=== PATIENT | female | born 1955 | race Caucasian/White ===

== ENCOUNTER 2024-08-24 03:24 | Emergency (ER) | payer OTHER ==
[~2024-08-24] VITALS: Ht 160 cm; Wt 90.9 kg
[2024-08-24 04:34] LABS: Basophils # (auto) 0 10 ^3/uL (0-0.2); Basophils % (auto) 0.3 % (0.0-2.0); Eosinophils # (auto) 0 10 ^3/uL (0-0.8); Eosinophils % (auto) 0.1 % (0.0-7.0); Hematocrit 39.4 % (36.0-46.0); Hemoglobin 13.3 g/dL (12.2-16.2); Lymphocytes # (auto) 0.7 10 ^3/uL (0.4-5.4); Lymphocytes % (auto) 5.5 % (10.0-50.0); Mean Corpuscular Hemoglobin 27.6 pg (28.0-32.0); Mean Corpuscular Hgb Conc. 33.7 g/dL (32.0-36.0); Mean Corpuscular Volume 82.1 fL (80.0-100.0); Monocytes # (auto) 0.3 10 ^3/uL (0-1.3); Monocytes % (auto) 2.5 % (0.0-12.0); Neutrophils # (auto) 12.2 10 ^3/uL (1.6-8.6); Neutrophils % (auto) 91.6 % (37.0-80.0); Platelet Count (auto) 446 10^3/uL (140-450); Red Cell Distribution Width 15.6 % (11.8-14.3); White Blood Cell 13.3 10^3/uL (4.4-10.8)
[2024-08-24 04:57] LABS: COVID19 ANTIGEN SOFIA FIA NEGATIVE (NEGATIVE); Rapid Influenza A Negative (Negative); Rapid Influenza B Negative (Negative)
[2024-08-24 04:59] LABS: Albumin 4.7 g/dL (3.2-4.8); Anion Gap 14 (5-15); BUN/Creatinine Ratio 12.2 (10.0-20.0); Blood Urea Nitrogen 15 mg/dL (9-23); Calcium 10.3 mg/dL (8.7-10.4); Carbon Dioxide 26 mmol/L (20-31)
[2024-08-24 05:09] LABS: Alanine Aminotransferase 55 U/L (7-40); Alkaline Phosphatase 131 U/L (46-116); Aspartate Aminotransferase 62 U/L (13-40); Chloride 94 mmol/L (98-107); Glucose 447 mg/dL (74-106); Sodium 134 mmol/L (136-145); Total Protein 8.6 g/dL (5.7-8.2)
[2024-08-24] MEDS: SODIUM CHLORIDE 0.9% 1,000 ML IV ONE ×2 (06:29→08:04)
[2024-08-24] MEDS: ONDANSETRON HCL 4 MG/2 ML VIAL IV ONE (06:30)
[2024-08-24] MEDS: ACETAMINOPHEN 325 MG TAB PO ONE (06:30)
[2024-08-24 07:15] VITALS: RESP 17
[2024-08-24] MEDS: InsuLIN REG 1unit/0.01ml Soln (100units/ml) IV ONE (08:11)
--- NOTE | 2024-08-24 09:07 | ED.PDOC ---
History of Present Illness HPI Comments 68Y F with PMHx DM and HTN presents to ED for chief complaint abd pain with n/v/d x1 day. Additional symptom includes intermittent dizziness for 3 weeks. Chief Complaint: Nausea/Vomiting Time Seen by MD: 08:30 Reviewed Notes: Medications, Allergies Allergies: Coded Allergies: Penicillins (Verified Allergy, Unknown, 08/24/24) Home Meds Active Scripts Nitrofurantoin Monohydrate Mac (Macrobid) 100 Mg Cap, 100 MG PO BID for 7 Days, #14 CAP Prov:JOS KHAN MD 08/24/24 Information Source: Patient Mode of Arrival: Ambulatory Severity: Mild Timing: Days Duration: Since onset Past Medical History PAST MEDICAL HISTORY: DM, HTN Surgical History: Denies all surgeries DRYWALL TAPER History: No Pertinent DRYWALL TAPER History Family History Family History: Unknown Social History Smoker: Non-Smoker Alcohol: Denies ETOH Use Drugs: Denies Drug Use Lives In: Home Constitutional: denies: chills, diaphoresis, fatigue, fever, malaise, sweats, weakness, others EENTM: denies: blurred vision, double vision, ear bleeding, ear discharge, ear drainage, ear pain, ear ringing, eye pain, eye redness, hearing loss, mouth pain, mouth swelling, nasal discharge, nose bleeding, nose congestion, nose pain, photophobia, tearing, throat pain, throat swelling, voice changes, others Respiratory: denies: cough, hemoptysis, orthopnea, SOB at rest, shortness of breath, SOB with excertion, stridor, wheezing, others Cardiovascular: denies: chest pain, dizzy spells, diaphoresis, Dyspnea on exertion, edema, irregular heart beat, left arm pain, lightheadedness, palpitations, PND, syncope, others Gastrointestinal: reports: abdominal pain, diarrhea, nausea, vomiting; denies: abdomen distended, blood streaked bowels, constipated, dysphagia, difficulty s wallowing, hematemesis, melena, poor appetite, poor fluid intake, rectal bleeding, rectal pain, others Genitourinary: denies: abnormal vagina bleeding, burning, dyspareunia, dysuria, flank pain, frequency, hematuria, incontinence, pain, , vagina discharge, urgency, others Neurological: reports: dizziness; denies: fainting, headache, left sided numbness, left sided weakness, numbness, paresthesia, pre-existing deficit, right sided numbness, right sided weakness, seizure, speech problems, tingling, tremors, weakness, others Musculoskeletal: denies: back pain, gout, joint pain, joint swelling, muscle pain, muscle stiffness, neck pain, others Integumetry: denies: bruises, change in color, change in hair/nails, dryness, laceration, lesions, lumps, rash, wounds, others Allergic/Immunocompromised: denies: Difficulty Healing, Frequent Infections, Hives, Itching, others Hematologic/Lymphatic: denies: anemia, blood clots, easy bleeding, easy bruising, swollen glands, others Endocrine: denies: excessive hunger, excessive sweating, excessive thirst, excessive urination, flushing, intolerance to cold, intolerance to heat, unexplained weight gain, unexplained weight loss, others Psychiatric: denies: anxiety, bipolar disorder, depression, hopeless, panic disorder, schizophrenia, sleepless, suicidal, others All Other Systems: Reviewed and Negative Physical Exam General Appearance: Moderate Distress, Normal HEENT: Normal ENT Inspection, Pharynx Normal, TMs Normal Neck: Full Range of Motion, Non-Tender, Normal, Normal Inspection Respiratory: Chest Non-Tender, Lungs Clear, No Accessory Muscle Use, No Respiratory Distress, Normal Breath Sounds Cardiovascular: No Edema, No JVD, No Murmur, No Gallop, Normal Peripheral Pulses, Regular Rate/Rhythm Breast Exam: Deferred Gastrointestinal: No Organomegaly, Non Tender, No Pulsatile Mass, Normal Bowel Sounds, Soft Genitalia: Deferred Pelvic: Deferred Rectal: Deferred Extremities: No calf tenderness, Normal capillary refill, Normal inspection, Normal range of motion, Non-tender, No pedal edema Musculoskeletal : Apperance: Normal Neurologic: Alert, agriculture consultant II-XII nml as Tested, No Motor Deficits, Normal Affect, Normal Mood, No Sensory Deficits Cerebellar Function: Normal Reflexes: Normal Skin: Dry, Normal Color, Warm Peripheral Pulses: 3+ Radial (R), 3+ Radial (L) Lymphatic: No Adenopathy Was a procedure done? Was a procedure done?: No Differential Dx Considerations may include: Urinary tract infection Electrolyte imbalance X-Ray, Labs, Meds, VS Vital Signs Date Time Temp Pulse Resp B/P (MAP) Pulse Ox O2 Delivery O2 Flow Rate FiO2 08/24/24 09:55 97.8 77 18 167/69 (101) 96 97.8 08/24/24 08:12 98.7 75 16 151/77 (101) 96 98.7 08/24/24 07:15 17 Room Air* 0 21 08/24/24 06:22 97.8 64 18 162/62 (95) 96 97.8 08/24/24 03:40 97.7 111 18 111/93 (99) 95 Lab Test 08/24/24 09:09 08/24/24 09:00 08/24/24 08:08 08/24/24 07:34 Range/Units POC Glucose 296 H 408 *H 432 *H 70-106 mg/dl Urine Color Pending Urine Clarity Pending Urine pH Pending Urine Specific [place] Pending Urine Protein Pending Urine Ketones Pending Urine Blood Pending Urine Nitrite Pending Urine Bilirubin Pending Urine Urobilinogen Pending Urine Leukocyte Esterase Pending Urine RBC Pending Urine WBC Pending Urine Squamous Epithelial Cells Pending Urine Bacteria Pending Urine Glucose Pending Test 08/24/24 07:33 08/24/24 05:32 08/24/24 04:25 08/24/24 04:10 Range/Units POC Glucose 414 *H 70-106 mg/dl Troponin I High Sensitivity 4 3 L </=34 ng/L White Blood Count 13.3 H 4.4-10.8 10^3/uL Red Blood Count 4.80 4.0-5.20 10^6/uL Hemoglobin 13.3 12.2-16.2 g/dL Hematocrit 39.4 36.0-46.0 % Mean Corpuscular Volume 82.1 80.0-100.0 fL Mean Corpuscular Hemoglobin 27.6 L 28.0-32.0 pg Mean Corpuscular Hemoglobin Concent 33.7 32.0-36.0 g/dL Red Cell Distribution Width 15.6 H 11.8-14.3 % Platelet Count 446 140-450 10^3/uL Mean Platelet Volume 8.1 6.9-10.8 fL Neutrophils (%) (Auto) 91.6 H 37.0-80.0 % Lymphocytes (%) (Auto) 5.5 L 10.0-50.0 % Monocytes (%) (Auto) 2.5 0.0-12.0 % Eosinophils (%) (Auto) 0.1 0.0-7.0 % Basophils (%) (Auto) 0.3 0.0-2.0 % Neutrophils # (Auto) 12.2 H 1.6-8.6 10 ^3/uL Lymphocytes # (Auto) 0.7 0.4-5.4 10 ^3/uL Monocytes # (Auto) 0.3 0-1.3 10 ^3/uL Eosinophils # (Auto) 0 0-0.8 10 ^3/uL Basophils # (Auto) 0 0-0.2 10 ^3/uL Nucleated Red Blood Cells 0.0 % Sodium Level 134 L 136-145 mmol/L Potassium Level 4.0 3.5-5.1 mmol/L Chloride Level 94 L 98-107 mmol/L Carbon Dioxide Level 26 20-31 mmol/L Anion Gap 14 5-15 Blood Urea Nitrogen 15 9-23 mg/dL Creatinine 1.23 H 0.550-1.02 mg/dL Glomerular Filtration Rate Calc 48 >90 mL/min BUN/Creatinine Ratio 12.2 10.0-20.0 Serum Glucose 447 *H 74-106 mg/dL Calcium Level 10.3 8.7-10.4 mg/dL Total Bilirubin 1.0 0.2-1.0 mg/dL Aspartate Amino Transferase (AST) 62 H 13-40 U/L Alanine Aminotransferase (ALT) 55 H 7-40 U/L Alkaline Phosphatase 131 H 46-116 U/L Total Protein 8.6 H 5.7-8.2 g/dL Albumin 4.7 3.2-4.8 g/dL Influenza Type A Antigen Negative Negative Influenza Type B Antigen Negative Negative SARS-CoV-2 Antigen (Rapid) Negative NEGATIVE Test 08/24/24 03:45 08/24/24 03:44 Range/Units POC Glucose 392 H 416 *H 70-106 mg/dl Current Medications Medications (Trade) Dose Ordered Sig/Martha Route Start Time Stop Time Status Last Admin Sodium Chloride 1,000 ml @ 1,000 mls/hr Q1H ONCE IV 08/24/24 06:15 08/24/24 07:14 DC 08/24/24 06:29 Ondansetron HCl (Zofran) 4 mg ONCE ONCE IV 08/24/24 06:15 08/24/24 06:16 DC 08/24/24 06:30 Acetaminophen (Tylenol Tablet) 650 mg ONCE ONCE PO 08/24/24 06:15 08/24/24 06:16 DC 08/24/24 06:30 Sodium Chloride 1,000 ml @ 1,000 mls/hr Q1H ONCE IV 08/24/24 08:00 08/24/24 08:59 DC 08/24/24 08:04 Insulin Human Regular (InsuLIN R) 10 units ONCE ONCE IV 08/24/24 08:00 08/24/24 08:01 DC 08/24/24 08:11 Nitrofurantoin Macrocrystals (Macrobid) 100 mg ONCE ONCE PO 08/24/24 09:15 08/24/24 09:16 DC 08/24/24 09:22 Patient alert. Came in because of urinary symptoms. Vitals stable. Answering all questions. Blood sugar elevated. Establish intravenous access. Was given fluids. Was given insulin. States that she is feeling much better. WBC slightly elevated. Was given prescription of Macrobid antibiotic. She was told her liver enzymes are slightly elevated. Spoke with [place] physician. No leg swelling. No chest pain. No shortness a breath. Good muscle strength. No sign of TIA. Possible vertigo. Walking a straight line. Ambulating without difficulty. Explained to the patient. Was told to follow up with her primary care physician. Was told to come back if there is any problem. Time of 1ST Reevaluation: 09:00 Reevaluation 1ST: Improved Time of 2ND Reevaluation: 10:24 Reevaluation 2ND: Improved Patient Education/Counseling: Diagnosis, Treatment Family Education/Counseling: No Family Present Departure 1 Departure Time of Disposition: 10:25 Impression: Primary Impression: Uncontrolled diabetes mellitus Qualified Codes: E13.65 - Other specified diabetes mellitus with hyperglycemia Additional Impression: Urinary tract infection Qualified Codes: N30.00 - Acute cystitis without hematuria Disposition: 01 HOME / SELF CARE / HOMELESS Condition: Good e-Prescriptions Nitrofurantoin Monohydrate Mac (Macrobid) 100 Mg Cap 100 MG PO BID for 7 Days, #14 CAP Prov: JOS KHAN MD 08/24/24 Discharged With: Self Critical Care Note Critical Care Time?: No Stability Stability form required: No Heart Score Heart Score: Heart Score Response (Comments) Value History N/A 0 EKG N/A 0 Age N/A 0 Risk Factors N/A 0 Troponin N/A 0 Total 0 I personally scribed for JOS KHAN MD ([email or web address]) on 08/24/24 at 09:06. Electronically submitted by Lizet Dacosta ([email or web address]). JOS KHAN MD Aug 24, 2024 09:06
[2024-08-24] MEDS: NITROFURANTOIN 100 mg CAP PO ONE (09:22)
[2024-08-24 09:55] VITALS: BP 167/69; PULSE 77; RESP 18; TEMP 97.8; O2SAT 96
[2024-08-24 10:15] LABS: Urine Bacteria None Seen /hpf (None Seen)
[2024-08-24] MEDS ORDERED: NITR-87 PO (10:27)
[2024-08-24 10:38] LABS: Urine Blood Negative /uL (Negative); Urine Clarity Clear (Clear); Urine Color Light-Yellow (Yellow); Urine Protein, UAD Negative (Negative); Urine Specific Gravity 1.036 (1.001-1.035); Urine Urobilinogen Normal (Negative); Urine WBC <1 /hpf (0 - 5); Urine pH 5.5 (5.0-9.0)
== END 2024-08-24 10:39 | disposition home or self-care (01) ==
LOC: ER 03:24
DX: E11.65 Type 2 diabetes mellitus with hyperglycemia (principal); I10 Essential (primary) hypertension; N39.0 Urinary tract infection, site not specified; E11.9 Type 2 diabetes mellitus without complications; Z20.822 Contact with and (suspected) exposure to COVID-19; Z79.899 Other long term (current) drug therapy; Z88.0 Allergy status to penicillin
CPT/HCPCS: 36415; 80053; 81001; 82962; 84484; 85025; 87426; 87804; 96361; 96374; 96375; 99284; J1815; J2405; J7030

== ENCOUNTER 2025-05-06 06:57 | Emergency (ER) | payer OTHER ==
[~2025-05-06] VITALS: Ht 162.6 cm; Wt 92.0 kg
[~2025-05-06 06:57] MED LIST: NITR-87 PO
--- NOTE | 2025-05-06 07:31 | ED.PDOC ---
General HPI Comments A 69 YEAR OLD FEMALE PRESENTS TO THE ED WITH COMPLAINT OF RIGHT LOWER BACK PAIN RADIATING TO HER FLANK AND LOWER ABDOMEN, ASSOCIATED WITH NAUSEA, URINARY URGENCY AND FREQUENCY THAT STARTED ABOUT 5-6 DAYS AGO. PATIENT WAS SEEN AT THE [facility] 2 DAYS AGO, DIAGNOSED WITH A UTI AND PRESCRIBED KEFLEX AND TRAMADOL. PATIENT IS COMPLIANT WITH MEDICATIONS, HOWEVER STATES NO PAIN RELIEF WITH TRAMADOL USE. SHE MENTIONS THAT PAIN IS UNBEARABLE NOW PROMPTING HER TO COME TO THE ED TODAY. PATIENT DENIES DYSURIA, URINARY RETENTION, FEVER, CHILLS, SHORTNESS OF BREATH, CHEST PAIN, ABDOMINAL PAIN, VOMITING, HEADACHE, OR OTHER COMPLAINTS. NO OTHER SYMPTOMS OR MODIFYING FACTORS AT THIS TIME. PATIENT IS ALERT, ORIENTED X 4, AND HAS STEADY GAIT Chief Complaint: Urinary Time Seen by MD: 07:17 Reviewed notes: Nurses Notes, Medications, Allergies Allergies: Coded Allergies: Penicillins (Verified Allergy, Unknown, 08/24/24) Home Meds Active Scripts Hydrocodone-Acetaminophen (Hydrocodone Bitartrate/AC 5-325 mg) 1 Tab Tab, 1 TAB PO BID, #14 TAB Prov:JULIO WHEELER 05/06/25 Nitrofurantoin Monohydrate Mac (Macrobid) 100 Mg Cap, 100 MG PO BID for 7 Days, #14 CAP Prov:JOS KHAN MD 08/24/24 Information Source: Patient Mode of Arrival: Ambulatory Severity: Mild, Moderate Timing: Days (6) Duration: Since onset Onset: Spontaneous Symptoms: Frequency, Urgency History of: UTI Location: (R) Flank Modifying factors: None associated signs and symptoms: Nausea, Flank Pain, Back Pain, Frequency, Urg ency Past Medical History PAST MEDICAL HISTORY: DM, HTN Surgical History: Denies all surgeries 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 History: No Pertinent COIL REWIND MACHINE OPERATOR History Family History Family History: Unknown Social History Smoker: Non-Smoker Alcohol: Denies ETOH Use Drugs: Denies Drug Use Lives In: Home Constitutional: denies: chills, diaphoresis, fatigue, fever, malaise, sweats, weakness, others EENTM: denies: blurred vision, double vision, ear bleeding, ear discharge, ear drainage, ear pain, ear ringing, eye pain, eye redness, hearing loss, mouth pain, mouth swelling, nasal discharge, nose bleeding, nose congestion, nose pain, photophobia, tearing, throat pain, throat swelling, voice changes, others Respiratory: denies: cough, hemoptysis, orthopnea, SOB at rest, shortness of breath, SOB with excertion, stridor, wheezing, others Cardiovascular: denies: chest pain, dizzy spells, diaphoresis, Dyspnea on exertion, edema, irregular heart beat, left arm pain, lightheadedness, palpitations, PND, syncope, others Gastrointestinal: reports: nausea; denies: abdomen distended, abdominal pain, blood streaked bowels, constipated, diarrhea, dysphagia, difficulty swallowing, hematemesis, melena, poor appetite, poor fluid intake, rectal bleeding, rectal pain, vomiting, others Genitourinary: reports: frequency, urgency; denies: abnormal vagina bleeding, burning, dyspareunia, dysuria, flank pain, hematuria, incontinence, pain, , vagina discharge, others Neurological: denies: dizziness, fainting, headache, left sided numbness, left sided weakness, numbness, paresthesia, pre-existing deficit, right sided numbness, right sided weakness, seizure, speech problems, tingling, tremors, weakness, others Musculoskeletal: reports: back pain, muscle pain; denies: gout, joint pain, joint swelling, muscle stiffness, neck pain, others Integumetry: denies: bruises, change in color, change in hair/nails, dryness, laceration, lesions, lumps, rash, wounds, others Allergic/Immunocompromised: denies: Difficulty Healing, Frequent Infections, Hives, Itching, others Hematologic/Lymphatic: denies: anemia, blood clots, easy bleeding, easy bruising, swollen glands, others Endocrine: denies: excessive hunger, excessive sweating, excessive thirst, excessive urination, flushing, intolerance to cold, intolerance to heat, unexplained weight gain, unexplained weight loss, others Psychiatric: denies: anxiety, bipolar disorder, depression, hopeless, panic disorder, schizophrenia, sleepless, suicidal, others All Other Systems: Reviewed and Negative Physical Exam General Appearance: No Apparent Distress, Obese HEENT: Normal ENT Inspection, PERRL/EOMI, Pharynx Normal, TMs Normal Neck: Full Range of Motion, Non-Tender, Normal, Normal Inspection Respiratory: Chest Non-Tender, Lungs Clear, No Accessory Muscle Use, No Respiratory Distress, Normal Breath Sounds Cardiovascular: No Edema, No JVD, No Murmur, No Gallop, Normal Peripheral Pulses, Regular Rate/Rhythm Breast Exam: Deferred Gastrointestinal: No Organomegaly, No Pulsatile Mass, Normal Bowel Sounds, Soft, Tenderness (RIGHT GROIN SITE, NO GUARDING AND REBOUND TENDERNESS. ) Genitalia: Deferred Pelvic: Normal External Exam Rectal: Deferred Extremities: No calf tenderness, Normal capillary refill, Normal inspection, Normal range of motion, Non-tender, No pedal edema Musculoskeletal : Location: Right Extremity Location: Back Apperance: Tenderness (AND MUSCLE SPASM ON RIGHT LOWER BACK, NO CVA TENDERNESS, NO BONY TENDERNESS AND DEFORMITY. ) Neurologic: Alert, r programmer II-XII nml as Tested, No Motor Deficits, Normal Affect, Normal Mood, No Sensory Deficits Cerebellar Function: Normal Reflexes: Normal Skin: Dry, Normal Color, Warm Peripheral Pulses: 2+ carotid (R), 2+ carotid (L), 2+ dorsalis pedis (R), 2+ dorsalis pedis (L) Lymphatic: No Adenopathy Was a procedure done? Was a procedure done?: No Differential Diagnosis Kidney stone (Female): HNP, Musculoskeletal pain, Pyelonephritis, Strain, Urinary obstruction, Urolithiasis Urinary Problem (Female): Pyelonephritis, UTI Other Differential Diagnosis DDD OF LOWER BACK X-Ray, Labs, Meds, VS Vital Signs Date Time Temp Pulse Resp B/P (MAP) Pulse Ox O2 Delivery O2 Flow Rate FiO2 05/06/25 07:02 97.8 86 20 150/96 96 97.8 Lab Test 05/06/25 07:42 05/06/25 07:20 Range/Units White Blood Count 14.3 H 4.4-10.8 10^3/uL Red Blood Count 4.87 4.0-5.20 10^6/uL Hemoglobin 13.4 12.2-16.2 g/dL Hematocrit 38.9 36.0-46.0 % Mean Corpuscular Volume 79.9 L 80.0-100.0 fL Mean Corpuscular Hemoglobin 27.5 L 28.0-32.0 pg Mean Corpuscular Hemoglobin Concent 34.4 32.0-36.0 g/dL Red Cell Distribution Width 15.5 H 11.8-14.3 % Platelet Count 477 H 140-450 10^3/uL Mean Platelet Volume 8.0 6.9-10.8 fL Neutrophils (%) (Auto) 74.8 37.0-80.0 % Lymphocytes (%) (Auto) 19.5 10.0-50.0 % Monocytes (%) (Auto) 4.7 0.0-12.0 % Eosinophils (%) (Auto) 0.5 0.0-7.0 % Basophils (%) (Auto) 0.5 0.0-2.0 % Neutrophils # (Auto) 10.7 H 1.6-8.6 10 ^3/uL Lymphocytes # (Auto) 2.8 0.4-5.4 10 ^3/uL Monocytes # (Auto) 0.7 0-1.3 10 ^3/uL Eosinophils # (Auto) 0.1 0-0.8 10 ^3/uL Basophils # (Auto) 0.1 0-0.2 10 ^3/uL Nucleated Red Blood Cells 0.0 % Sodium Level 134 L 136-145 mmol/L Potassium Level 3.4 L 3.5-5.1 mmol/L Chloride Level 96 L 98-107 mmol/L Carbon Dioxide Level 25 20-31 mmol/L Anion Gap 13 5-15 Blood Urea Nitrogen 11 9-23 mg/dL Creatinine 0.97 0.550-1.02 mg/dL Glomerular Filtration Rate Calc 64 >90 mL/min BUN/Creatinine Ratio 11.3 10.0-20.0 Serum Glucose 331 H 74-106 mg/dL Calcium Level 9.5 8.7-10.4 mg/dL Total Bilirubin 0.8 0.2-1.0 mg/dL Aspartate Amino Transferase (AST) 46 H 13-40 U/L Alanine Aminotransferase (ALT) 38 7-40 U/L Alkaline Phosphatase 110 46-116 U/L Total Protein 8.4 H 5.7-8.2 g/dL Albumin 4.6 3.2-4.8 g/dL Urine Color Yellow Yellow Urine Clarity Clear Clear Urine pH 5.5 5.0-9.0 Urine Specific [place] 1.018 1.001-1.035 Urine Protein Trace H Negative Urine Ketones Negative Negative Urine Blood Negative Negative /uL Urine Nitrite Negative Negative Urine Bilirubin Negative Negative Urine Urobilinogen Normal Negative mg/dL Urine Leukocyte Esterase Negative Negative /uL Urine RBC 1 0 - 4 /hpf Urine Microscopic WBC 2 0-5 /HPF Urine Squamous Epithelial Cells Few <5 /hpf Urine Bacteria Few H None Seen /hpf Urine Glucose 2+ H Normal mg/dL Current Medications Medications (Trade) Dose Ordered Sig/Martha Route Start Time Stop Time Status Last Admin Ketorolac Tromethamine (Toradol Injection) 30 mg ONCE ONCE IM 05/06/25 09:00 05/06/25 09:02 DC 05/06/25 09:15 [place] [id number] Ph: [phone] DIAGNOSTIC IMAGING Diagnostic Imaging Report : [id number] Signed PATIENT: MIGUEL PABLO ACCT: [id number] UNIT: [id number] : 1955 LOC: ER ROOM / BED: / AGE / SEX: 69 / F ADM STATUS: REG ER SERVICE 8 ORDERING PHYSICIAN: JULIO WHEELER PROCEDURE(s): ABPL - CT AB PEL WO CON-NO ORAL OR IV REASON: RIGHT LOW BACK PAIN TO RIGHT LOWER ABD WITH UTI SYMPTOMS ORDER NUMBER(s): [id number], ACCESSION NUMBER(s): [id number] EXAM: CT CT AB PEL WO CON-NO ORAL OR IV HISTORY: RIGHT LOW BACK PAIN TO RIGHT LOWER ABD WITH UTI SYMPTOMS, prior cholecystectomy and hysterectomy. COMPARISON: None TECHNIQUE: Helical CT images of the abdomen and pelvis were performed without IV contrast. Sagittal and coronal reformatted images were obtained. This CT exam was performed using one or more of the following dose reduction techniques: Automated exposure control, adjustment of the mA and/or kv according to patient size, or the use of iterative reconstruction techniques. Radiation Dose: Abdomen/Pelvis: CTDIvol 20.74 mGy, DLP 958.1 mGy*cm. FINDINGS: CT abdomen: The lung bases are clear. The heart is not enlarged. The liver is diffusely fatty density and measures 20 cm longitudinal. The spleen measures 12 cm longitudinal. The gallbladder is surgically absent. The noncontrast pancreas, kidneys, and adrenal glands are unremarkable. No abdominal aortic aneurysm. There is an umbilical fatty hernia with neck measuring 3.4 cm transverse and hernia sac measuring [address] pelvis: No abnormal bowel dilatation, free air, or free fluid. There is fecal retention throughout the colon. The uterus is surgically absent. The appendix is not dilated. The urinary bladder is not distended. There is moderate to advanced lumbar degenerative disc disease and facet arthropathy, greater in the lower levels. There is spina bifida occulta L5 and S1. There is developmental irregularity of the right L4-L5 facet. IMPRESSION: 1. Postoperative changes of cholecystectomy and hysterectomy. 2. Hepatic steatosis, hepatomegaly, and borderline splenomegaly. 3. Fecal retention in the colon suggestive of constipation. 4. Moderate to severe lower lumbar degenerative disc disease, greater in the lower levels. Additionally, there is spina bifida occulta at L5 and S1, and developmental irregularity of the right L4-L5 facet. 5. No evidence of bowel obstruction, acute appendicitis, or other acute process in the abdomen or pelvis. ATED BY: DHAVAL BENITES MD DICTATED DATE/TIME: 05/06/25827 SIGNED BY: DHAVAL BENITES MD SIGNED DATE/TIME: 05/06/25827 CC: X-Ray, Labs, Meds, VS Comment EXTERNAL MEDICAL RECORDS REVIEWED: [NONE] INDEPENDENT HISTORIANS: [NONE] SOCIAL DETERMINANTS OF HEALTH: [NONE] LABS ORDERED: UA, CBC, CMP REVIEWED AND INTERPRETED RESULTS: NEG UA. IMAGING ORDERED: CT ABD TREATMENTS ORDERED: TORADOL 30MG IM, ACCECK BS: [id number] OFFERED DM MEDICATION DUE TO ELEVATED BG HOWEVER DECLINED TREATMENT SHE WANTS TO GO HOME AND TAKE HER OWN MEDICATION SHE HAS NOT TAKEN IT TODAY. PROCEDURES PERFORMED: NONE CRITICAL CARE TIME: NONE I HAVE DISCUSSED THE PATIENT WITH THE ATTENDING PHYSICIAN, SHE AGREES WITH THE PATIENT'S PLAN OF CARE AND DISPOSITION. BASED ON HISTORY OF PRESENT ILLNESS, AND PHYSICAL EXAM, PATIENT WILL BE DISCHARGED HOME. DISCUSSED PLAN FOR DISCHARGE HOME WITH RX [facility] 5/324MG. MEDICATION WARNINGS GIVEN. SHARED DECISION MAKING: DISCUSSED WITH PATIENT THAT THEIR WORKUP INCLUDED NO FINDINGS OF A UTI. THERE WERE FINDINGS OF DDD LUMBAR AND CONSTIPATION ON CT ABD IMAGING RESULTS. PATIENT INSTRUCTED TO CONTINUE ANTIBIOTIC REGIME GIVEN BY [facility] FOR UTI DX 2 DAYS AGO AND TO FOLLOW UP WITH PRIMARY CARE PROVIDER IN 1-2 DAYS FOR RE-EVALUATION OF SYMPTOMS. PATIENT VERBALIZES UNDERSTANDING TO RETURN TO ED FOR NEW OR WORSENING SYMPTOMS OR IF FOLLOW UP WITH PCP CANNOT BE OBTAINED. PATIENT FEELS COMFORTABLE GOING HOME AT THIS TIME. ALL QUESTIONS ADDRESSED AT TIME OF DISCHARGE. Time of 1ST Reevaluation: 09:22 Reevaluation 1ST: Improved Patient Education/Counseling: Diagnosis, Treatment, Need For Follow Up Family Education/Counseling: Diagnosis, Treatment, No Family Present Medical Screening: No EMC Exist At This Time SEPSIS Sepsis Screen Date sepsis recognized/suspect: May 06, 2025 Time Sepsis recognized/suspect: 701 Recent Procedure: No On Antibiotic Therapy: Yes Respiratory Rate >20: No Heart Rate >90: No Temp<36 C (96.8 F) or >38.3 C: No SBP <90 or MAP <65 mmHG: No New Acute Mental Status Change: No Is the patient on CPAP, BIPAP,: No Physician Orders Ct Ab Pel Wo Con-No Oral Or Iv (05/06/25 07:19) Vital Signs Date Time Temp Pulse Resp B/P (MAP) Pulse Ox O2 Delivery O2 Flow Rate FiO2 05/06/25 07:02 97.8 86 20 150/96 96 97.8 Laboratory Tests Test 05/06/25 07:42 White Blood Count 14.3 10^3/uL (4.4-10.8) H Medications Medications Dose Ordered Sig/Martha Route Start Time Stop Time Status Last Admin Dose Admin Ketorolac Tromethamine 30 mg ONCE ONCE IM 05/06/25 09:00 05/06/25 09:02 DC 05/06/25 09:15 Departure 1 Departure Time of Disposition: :22 Impression: Primary Impression: Symptomatic urinary tract infection Additional Impressions: Constipation Qualified Codes: K59.00 - Constipation, unspecified DDD (degenerative disc disease), lumbar Qualified Codes: M51.362 - Other intervertebral disc degeneration, lumbar region with discogenic back pain and lower extremity pain Disposition: 01 HOME / SELF CARE / HOMELESS Condition: Stable Additional Instructions: F/U PCP IN 2DAYS RECHECK. IF CONDITION BECOME WORSE, RETURN TO ED SUE. e-Prescriptions Hydrocodone-Acetaminophen (Hydrocodone Bitartrate/AC 5-325 mg) 1 Tab Tab 1 TAB PO BID, #14 TAB Prov: JULIO WHEELER 05/06/25 Discharged With: Self Critical Care Note Critical Care Time?: No Stability Stability form required: No I personally scribed for JULIO WHEELER ([email or web address]) on 05/06/25 at 07:31. Electronically submitted by Yamini Vance ([facility]). I personally scribed for JULIO WHEELER ([email or web address]) on 05/06/25 at 09:00. Electronically submitted by Yamini Vance ([facility]). I personally scribed for JULIO WHEELER ([email or web address]) on 05/06/25 at 09:16. Electronically submitted by Yamini Vance ([facility]). I personally scribed for JULIO WHEELER ([email or web address]) on 05/06/25 at 09:18. E lectronically submitted by Yamini Vance ([facility]). JULIO WHEELER May 06, 2025 07:31
--- NOTE | 2025-05-06 08:30 | DVH ---
EXAM: CT CT AB PEL WO CON-NO ORAL OR IV HISTORY: RIGHT LOW BACK PAIN TO RIGHT LOWER ABD WITH UTI SYMPTOMS, prior cholecystectomy and hysterec adryan. COMPARISON: None TECHNIQUE: Helical CT images of the abdomen and pelvis were performed without IV contrast. Sagittal a nd coronal reformatted images were obtained. This CT exam was performed using one or more of the foll owing dose reduction techniques: Automated exposure control, adjustment of the mA and/or kv according to patient size, or the use of iterative reconstruction techniques. Radiation Dose: Abdomen/Pelvis: CTDIvol 20.74 mGy, DLP 958.1 mGy*cm. FINDINGS: CT abdomen: The lung bases are clear. The heart is not enlarged. The liver is diffusely fatty density and measures 20 cm longitudinal. The spleen measures 12 cm longitudinal. The gallbladder is surgic ally absent. The noncontrast pancreas, kidneys, and adrenal glands are unremarkable. No abdominal aor tic aneurysm. There is an umbilical fatty hernia with neck measuring 3.4 cm transverse and hernia sac measuring [address] pelvis: No abnormal bowel dilatation, free air, or free fluid. There is fecal retention throughout the colon. The uterus is surgically absent. The appendix is not dilated. The urinary bladder is no t distended. There is moderate to advanced lumbar degenerative disc disease and facet arthropathy, gr eater in the lower levels. There is spina bifida occulta L5 and S1. There is developmental irregulari ty of the right L4-L5 facet. IMPRESSION: 1. Postoperative changes of cholecystectomy and hysterectomy. 2. Hepatic steatosis, hepatomegaly, and borderline splenomegaly. 3. Fecal retention in the colon suggestive of constipation. 4. Moderate to severe lower lumbar degenerative disc disease, greater in the lower levels. Additiona lly, there is spina bifida occulta at L5 and S1, and developmental irregularity of the right L4-L5 fa cet. 5. No evidence of bowel obstruction, acute appendicitis, or other acute process in the abdomen or pel vis.
[2025-05-06 08:33] LABS: Urine Protein, UAD TRACE (Negative)
[2025-05-06 08:33] LABS: Hematocrit 38.9 % (36.0-46.0); Hemoglobin 13.4 g/dL (12.2-16.2); Mean Corpuscular Hemoglobin 27.5 pg (28.0-32.0); Mean Corpuscular Volume 79.9 fL (80.0-100.0); Nucleated Red Blood Cells % 0.0 %
[2025-05-06 08:49] LABS: Alanine Aminotransferase 38 U/L (7-40); Albumin 4.6 g/dL (3.2-4.8); Alkaline Phosphatase 110 U/L (46-116); Anion Gap 13 (5-15); BUN/Creatinine Ratio 11.3 (10.0-20.0); Bilirubin, Total 0.8 mg/dL (0.2-1.0); Blood Urea Nitrogen 11 mg/dL (9-23); Calcium 9.5 mg/dL (8.7-10.4); Carbon Dioxide 25 mmol/L (20-31)
[2025-05-06 08:50] LABS: Chloride 96 mmol/L (98-107); Glucose 331 mg/dL (74-106); Potassium 3.4 mmol/L (3.5-5.1); Sodium 134 mmol/L (136-145); Total Protein 8.4 g/dL (5.7-8.2)
[2025-05-06] MEDS: KETOROLAC TROMETH 60MG/2ML VIAL IM ONE (09:15)
[2025-05-06] MEDS ORDERED: HYDR-4902 PO (09:19)
[2025-05-06 09:25] VITALS: BP 172/76; PULSE 68; RESP 18; TEMP 97.9; O2SAT 97
== END 2025-05-06 09:26 | disposition home or self-care (01) ==
LOC: ER 06:57
DX: N39.0 Urinary tract infection, site not specified (principal); K59.00 Constipation, unspecified; M51.362 Other intervertebral disc degeneration, lumbar region with discogenic back pain and lower extremity pain; I10 Essential (primary) hypertension; E11.9 Type 2 diabetes mellitus without complications; Z88.0 Allergy status to penicillin; Z90.49 Acquired absence of other specified parts of digestive tract; Z90.710 Acquired absence of both cervix and uterus
CPT/HCPCS: 36415; 74176; 80053; 81001; 85025; 96372; 99285; J1885